=== PATIENT | female | born 1995 | race Caucasian/White ===

== ENCOUNTER 2021-05-01 07:44 | Outpatient (CLI) | payer OTHER | END 2021-05-01 07:45 | disposition home or self-care (01) | LOC: BICULT 07:44 | PROVIDERS: ATTEND Advanced Practice Midwife | DX: N63.10 Unspecified lump in the right breast, unspecified quadrant (principal) ==

== ENCOUNTER 2023-03-14 19:46 | Emergency (ER) | payer OTHER, SELFPAY ==
[2023-03-14 23:09] LABS: HIV (1/2) Antibody/Antigen Non-Reactive (NonReactive); HIV 1/2 INDEX 0.21 S/CO (<1.00); Hep C IgG Ab Non-Reactive S/CO (NonReactive); Hep C Index 0.07 S/CO (0-0.79)
[2023-03-14 23:19] LABS: HBSAB Concentration 619.97 mIU/mL; Hep B Surf AB Reactive (NonReactive)
== END 2023-03-14 20:31 | disposition home or self-care (01) ==
LOC: ERS 19:46
DX: O99.891 Other specified diseases and conditions complicating pregnancy (principal); Z77.21 Contact with and (suspected) exposure to potentially hazardous body fluids; Z3A.25 25 weeks gestation of pregnancy
CPT/HCPCS: 36415; 99283